=== PATIENT | female | born 1955 | race Caucasian/White ===

== ENCOUNTER → 2016-09-28 | Outpatient (CLI) | payer BC, OTHER | LOC: US 08:45 | DX: R79.89 Other specified abnormal findings of blood chemistry (principal); K83.8 Other specified diseases of biliary tract | CPT/HCPCS: 76705 ==

== ENCOUNTER → 2016-10-09 | Outpatient (CLI) | payer BC, OTHER | LOC: CT 09:00 | DX: F17.210 Nicotine dependence, cigarettes, uncomplicated (principal) | CPT/HCPCS: G0297 ==

== ENCOUNTER → 2016-12-06 | Outpatient (CLI) | payer BC, OTHER | LOC: MRI 11-16 13:00 | DX: K83.8 Other specified diseases of biliary tract (principal); K76.0 Fatty (change of) liver, not elsewhere classified; K44.9 Diaphragmatic hernia without obstruction or gangrene | CPT/HCPCS: 36415; 74181; 80076; 82150; 83690 ==

== ENCOUNTER → 2020-08-20 | Outpatient (CLI) | payer BC ==
[~2020-08-20] MED LIST: ABILIFY10 MG PO; AMLODIPINE BESYL5 MG PO; BUSPAR 5MG TABLE5 MG PO; DETROL LA4 MG PO; LIPITOR TAB 2020 MG PO; NEURONTIN 300300 MG PO; PROAIR HFA8.5 GM INH; WELLBUTRIN XL300 MG PO
== END ==
LOC: KOH-I 10:14
DX: Z12.2 Encounter for screening for malignant neoplasm of respiratory organs (principal); Z87.891 Personal history of nicotine dependence; E27.8 Other specified disorders of adrenal gland
CPT/HCPCS: 71271

== ENCOUNTER → 2021-04-14 | Outpatient (CLI) | payer BC, MEDICARE | LOC: EXRD 09:08 | DX: K76.0 Fatty (change of) liver, not elsewhere classified (principal); K76.89 Other specified diseases of liver | CPT/HCPCS: 76700 ==

== ENCOUNTER → 2021-05-25 | Outpatient (CLI) | payer OTHER | LOC: CT 05-23 09:30 | DX: D35.01 Benign neoplasm of right adrenal gland (principal); D35.02 Benign neoplasm of left adrenal gland; I10 Essential (primary) hypertension | CPT/HCPCS: 74170; Q9967 ==

== ENCOUNTER 2021-06-11 15:13 | Emergency (ER) | payer OTHER | END 2021-06-11 21:19 | disposition home or self-care (01) | LOC: ER1 15:13 | DX: M79.661 Pain in right lower leg (principal) | CPT/HCPCS: 73590; 85379; 99283 ==

== ENCOUNTER → 2021-06-27 | Outpatient (CLI) | payer OTHER | LOC: KOH-I 11:00 | DX: R05.9 Cough, unspecified (principal); M54.50 Low back pain, unspecified; M47.816 Spondylosis without myelopathy or radiculopathy, lumbar region | CPT/HCPCS: 71046; 72100 ==

== ENCOUNTER → 2021-07-06 | Outpatient (CLI) | payer OTHER | LOC: EXRD 13:00 | DX: M79.605 Pain in left leg (principal); M79.604 Pain in right leg | CPT/HCPCS: 93925; 93970 ==

== ENCOUNTER → 2021-07-07 | Outpatient (CLI) | payer OTHER | LOC: HEART 5 15:48 | DX: R06.02 Shortness of breath (principal) | CPT/HCPCS: 94060; 94729 ==

== ENCOUNTER → 2021-07-15 | Outpatient (CLI) | payer OTHER | LOC: ECHO 07-04 09:45 | DX: I70.0 Atherosclerosis of aorta (principal) | CPT/HCPCS: ECHO; 93306 ==

== ENCOUNTER → 2021-08-22 | Outpatient (CLI) | payer OTHER | LOC: KOH-I 12:45 | DX: Z87.891 Personal history of nicotine dependence (principal) | CPT/HCPCS: 71271 ==